=== PATIENT | male | born 1965 | race Caucasian/White ===

== ENCOUNTER 2024-06-30 12:51 | Emergency (ER) | payer OTHER ==
[2024-06-30] VITALS (7 sets, daily range): BP systolic 132–154; BP diastolic 82–98
[~2024-06-30] VITALS: Ht 182.9 cm; Wt 98.0 kg
[2024-06-30] MEDS ORDERED: IBUPROFEN 800 MG/TAB PO ONE (13:05)
[2024-06-30] MEDS ORDERED: METHOCARBAMOL500 MG PO (15:10)
[2024-06-30] MEDS ORDERED: MOTRIN800 MG PO (15:10)
[2024-06-30] MEDS ORDERED: ZOFRAN4 MG/TAB PO (15:11)
== END 2024-06-30 15:36 | disposition home or self-care (01) | DRG 605 ==
LOC: ED 12:51
DX: S00.31XA Abrasion of nose, initial encounter (principal); S16.1XXA Strain of muscle, fascia and tendon at neck level, initial encounter; S00.12XA Contusion of left eyelid and periocular area, initial encounter; S00.11XA Contusion of right eyelid and periocular area, initial encounter; S39.012A Strain of muscle, fascia and tendon of lower back, initial encounter; R42 Dizziness and giddiness; G44.309 Post-traumatic headache, unspecified, not intractable; F07.81 Postconcussional syndrome; Y04.8XXA Assault by other bodily force, initial encounter

== ENCOUNTER 2024-08-13 16:18 | Emergency (ER) | payer OTHER ==
[2024-08-13] VITALS (9 sets, daily range): BP systolic 137–175; BP diastolic 84–111
[~2024-08-13] VITALS: Ht 182.9 cm; Wt 99.8 kg
[~2024-08-13 16:18] MED LIST: METHOCARBAMOL500 MG PO; MOTRIN800 MG PO; ZOFRAN4 MG/TAB PO
[2024-08-13 16:45] LABS: BASO% 0.5 % (0-3); EOS% 1.4 % (0-8); HEMATOCRIT 47.4 % (39.0-50.0); HEMOGLOBIN 15.6 g/dl (14.0-18.0); IMMATURE GRANULOCYTES 0.2 % (0.0-5.0); LYMPH% 30.1 % (15-41); MEAN CELL VOLUME 90.5 fL CALC (80.0-100.0); MEAN CORPUSCULAR HGB 29.8 pG CALC (26.0-32.0); MEAN CORPUSCULAR HGB CONC 32.9 g/dL CAL (32.0-36.0); MONO% 6.6 % (2-13); NEUT# 5.08 thou/uL (1.82-7.42); NEUT% 61.2 % (42-76); RED BLOOD COUNT 5.24 mill/uL (4.70-6.10)
[2024-08-13 17:07] LABS: ALBUMIN 4.7 g/dL (3.2-5.0); BILIRUBIN, TOTAL 0.5 mg/dL (0.2-1.3); CREATININE 1.1 mg/dL (0.7-1.3); POTASSIUM 4.3 mmol/l (3.5-5.1); TOTAL PROTEIN 7.6 g/dL (6.3-8.2)
== END 2024-08-13 18:59 | disposition left against medical advice (07) | DRG 84 ==
LOC: ED 16:18
PROVIDERS: Family Medicine
DX: S06.5XAA Traumatic subdural hemorrhage with loss of consciousness status unknown, initial encounter (principal); H53.8 Other visual disturbances; Y04.2XXA Assault by strike against or bumped into by another person, initial encounter; Z53.29 Procedure and treatment not carried out because of patient's decision for other reasons

== ENCOUNTER 2024-08-14 07:02 | Emergency (ER) | payer OTHER ==
[~2024-08-14] VITALS: Ht 182.9 cm; Wt 100.0 kg
[2024-08-14 07:12] VITALS: BP 150/92
[2024-08-14 08:21] LABS: BASO% 0.3 % (0-3); EOS% 1.8 % (0-8); HEMATOCRIT 45.9 % (39.0-50.0); HEMOGLOBIN 15.2 g/dl (14.0-18.0); IMMATURE GRANULOCYTES 0.2 % (0.0-5.0); LYMPH% 27.2 % (15-41); MEAN CELL VOLUME 91.4 fL CALC (80.0-100.0); MEAN CORPUSCULAR HGB 30.3 pG CALC (26.0-32.0); MEAN CORPUSCULAR HGB CONC 33.1 g/dL CAL (32.0-36.0); MONO% 9.2 % (2-13); NEUT# 3.81 thou/uL (1.82-7.42); NEUT% 61.3 % (42-76); RED BLOOD COUNT 5.02 mill/uL (4.70-6.10); RED CELL DISTRI WIDTH 13.1 % (11.5-15.5)
[2024-08-14 08:35] LABS: ALBUMIN 4.2 g/dL (3.2-5.0); BILIRUBIN, TOTAL 0.5 mg/dL (0.2-1.3); CREATININE 0.9 mg/dL (0.7-1.3); POTASSIUM 4.3 mmol/l (3.5-5.1); TOTAL PROTEIN 6.9 g/dL (6.3-8.2)
[2024-08-14 08:49] VITALS: BP 151/93
[2024-08-14 09:00] VITALS: BP 125/80
[2024-08-14] MEDS ORDERED: LORazepam 2 MG/ML IV ONE (09:10)
[2024-08-14 11:00] VITALS: BP 123/88
[2024-08-14 12:00] VITALS: BP 122/93
[2024-08-14 13:00] VITALS: BP 122/93
== END 2024-08-14 13:00 | disposition home or self-care (01) | DRG 84 ==
LOC: ED 07:02
PROVIDERS: Family Medicine
DX: S06.5XAA Traumatic subdural hemorrhage with loss of consciousness status unknown, initial encounter (principal); H49.11 Fourth [trochlear] nerve palsy, right eye; H49.21 Sixth [abducent] nerve palsy, right eye; Y04.2XXA Assault by strike against or bumped into by another person, initial encounter; I10 Essential (primary) hypertension
CPT/HCPCS: J1953; J2060

== ENCOUNTER 2024-08-21 09:32 | Emergency (ER) | payer OTHER ==
[~2024-08-21] VITALS: Ht 182.9 cm; Wt 99.0 kg
[2024-08-21 09:38] VITALS: BP 167/90
[2024-08-21 09:46] VITALS: BP 149/87
[2024-08-21 11:39] VITALS: BP 149/87
== END 2024-08-21 11:49 | disposition home or self-care (01) | DRG 949 ==
LOC: ED 09:32
DX: S06.5XAD Traumatic subdural hemorrhage with loss of consciousness status unknown, subsequent encounter (principal); G96.00 Cerebrospinal fluid leak, unspecified; X58.XXXD Exposure to other specified factors, subsequent encounter